=== PATIENT | male | born 1950 | race Caucasian/White ===

== ENCOUNTER 2017-01-05 05:30 | Day surgery (SDC) | payer OTHER ==
[~2017-01-05] VITALS: Ht 170.2 cm; Wt 93.0 kg
[~2017-01-05 05:30] MED LIST: NIAC500T2 PO; SIMV20TA2 PO; UBID1CAP53 PO
[2017-01-05 06:19] VITALS: O2SAT 95
[2017-01-05] MEDS ORDERED: MIDAZOLAM HCL 5 MG/5 ML VIAL IVP ONE (07:06)
[2017-01-05] MEDS ORDERED: BUPIVACAINE /EPINEPHRINE/PF 0.25% 30 ML VIAL INJ ONE (07:06)
[2017-01-05] MEDS ORDERED: KETOROLAC TROMETHAMINE 30 MG VIAL IVP ONE (07:06)
[2017-01-05] MEDS ORDERED: PROPOFOL 200MG/ 20ML VIAL (DIPRIVAN) IV ONE (07:06)
[2017-01-05] MEDS ORDERED: fentaNYL CITRATE/PF 100 MCG/2 ML AMP IVP ONE (07:06)
[2017-01-05] MEDS ORDERED: LR 1,000 ML IV.SOLN IV ONE (07:06)
[2017-01-05] MEDS ORDERED: ROCURONIUM BROMIDE 10 MG/ML (ZEMURON) IV ONE (07:06)
[2017-01-05] MEDS ORDERED: SEVOFLURANE 15 MIN GAS INH ONE (07:06)
[2017-01-05] MEDS ORDERED: ONDANSETRON HCL 4 MG/2 ML VIAL IVP ONE (07:06)
[2017-01-05] MEDS ORDERED: NS IRRIG SOLN 1000 ML IR ONE (07:06)
[2017-01-05] MEDS ORDERED: CEFAZOLIN 1 GM IVPB PREMIX 50 ML IV ONE (07:21)
[2017-01-05] MEDS ORDERED: IOHEXOL 50 ML IV ONE (07:38)
[2017-01-05] MEDS ORDERED: LR 1,000 ML IV SCH (07:56)
[2017-01-05] MEDS ORDERED: HYDROmorphone 2 MG/ML VIAL IVP PRN ×2 (08:00)
[2017-01-05] MEDS ORDERED: HYDROmorphone 1 MG INJ. 1 MG/ML AMPUL IVP PRN ×2 (08:00→08:45)
[2017-01-05] MEDS ORDERED: MEPERIDINE HCL/PF 25 MG/ML DISP.SYRIN IVP PRN ×2 (08:00)
[2017-01-05] MEDS ORDERED: ONDANSETRON HCL 4 MG/2 ML VIAL IVP PRN (08:00)
[2017-01-05] MEDS ORDERED: D5/0.45 NS 1,000 ML IV SCH (08:44)
[2017-01-05] MEDS ORDERED: HYDROcodone/ACETAMIN 5-325 MG TAB (NORCO/ VICODIN) PO PRN ×2 (08:45)
[2017-01-05 11:54] VITALS: BP 135/69; PULSE 72; RESP 14
[2017-01-05] MEDS ORDERED: CEFAZOLIN SOD 1 GM/ ISO 50 ML PREMIX IV SCH (14:00)
== END 2017-01-05 11:00 | disposition home or self-care (01) ==
LOC: SMU 05:30 → SDS 05:30
PROVIDERS: ATTEND Colon & Rectal Surgery
DX: K80.10 Calculus of gallbladder with chronic cholecystitis without obstruction (principal); K66.0 Peritoneal adhesions (postprocedural) (postinfection); E78.5 Hyperlipidemia, unspecified; E55.9 Vitamin D deficiency, unspecified; Z98.890 Other specified postprocedural states; Z83.3 Family history of diabetes mellitus; Z80.9 Family history of malignant neoplasm, unspecified; Z87.891 Personal history of nicotine dependence; I10 Essential (primary) hypertension; E66.9 Obesity, unspecified; Z68.31 Body mass index [BMI] 31.0-31.9, adult; K21.9 Gastro-esophageal reflux disease without esophagitis
CPT/HCPCS: 47563; 74300; 88304; C1727; C1758; J0690; J1885; J2250; J2405; J2704; J3010; J3490; J7120; Q9967